=== PATIENT | female | born 1970 | race Caucasian/White ===

== ENCOUNTER 2020-11-28 09:31 | Outpatient (CLI) | payer OTHER ==
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
== END 2020-11-28 09:32 | disposition home or self-care (01) ==
LOC: SC 09:31
PROVIDERS: ATTEND Internal Medicine Pulmonary Disease
DX: G47.10 Hypersomnia, unspecified (principal); R41.89 Other symptoms and signs involving cognitive functions and awareness; G47.8 Other sleep disorders; R06.81 Apnea, not elsewhere classified; R06.83 Snoring; E66.01 Morbid (severe) obesity due to excess calories; Z68.42 Body mass index [BMI] 45.0-49.9, adult
CPT/HCPCS: 99202; 99212

== ENCOUNTER 2020-12-07 15:22 | Outpatient (CLI) | payer OTHER ==
--- NOTE | 2020-12-15 10:15 | Mammography Report ---
BILATERAL DIGITAL SCREENING MAMMOGRAM 3D/2D: 12/07/2020 CLINICAL: Routine screening. No prior exams were available for comparison. There are scattered fibroglandular elements in both br easts. No significant masses, calcifications, or other findings are seen in either breast. IMPRESSION: NEGATIVE There is no mammographic evidence of malignancy. A 1 year screening mammogram is recommended. This exam was interpreted at Station ID: [id number]. NOTE: For mammograms, a report in lay terms will be sent to the patient. Approximately 15% of breast malignancies will not be visualized mammographically. In the management of a palpable breast mass, a negative mammogram must not discourage biopsy of a clinically suspicious lesion. Electronically Signed By: Amada patel/ruby:12/14/2020 09:15:45 ACR BI-RADS Category 1: Negative 3341F PARENCHYMAL PATTERN: (A) - The breast(s) demonstrate(s) scattered fibroglandular densities. BI-RADS CATEGORY: (1) - 1 RECOMMENDATION: (ANNUAL) - Recommend routine annual screening mammography. [id number] 1 year screening LATERALITY: (B)
== END 2020-12-07 15:23 | disposition home or self-care (01) ==
LOC: DI.N 15:22
PROVIDERS: ATTEND Physician Assistant Medical
DX: Z12.31 Encounter for screening mammogram for malignant neoplasm of breast (principal)

== ENCOUNTER 2022-01-30 15:05 | Emergency (ER) | payer OTHER ==
--- NOTE | 2022-01-30 16:29 | ED Physician Documentation ---
PD HPI HEADACHE - Stated complaint Stated Complaint: HIGH BP - Chief complaint Chief Complaint: General - History obtained from History obtained from: Patient - History of Present Illness Timing - onset: How many days ago (several days of feeling of pressure frontal head, some intermittent blurred vision, and feeling of nausea.) Timing - onset during: Light activity Timing - duration: Days (few days of feeling head pressure. Took BP at home and noted it elevated 160-180 systolic and 100 diastolic the past few days, and higher today over 200 systolic. This made her very concerned.) Timing - details: Gradual onset, Waxing and waning Worst headache ever?: No: Worst headache ever? Location: Front, Global Quality: Tightness Associated symptoms: Nausea, Vision changes (blurred at times). No: Fever, Stiff neck Improved by: Rest Worsened by: No: Light, Noise Contributing factors: Hypertension (used to be on several BP meds but has tapered to just hydralazine on her own. DOes not regularly check BP. LAst time taken was several months ago in PMD office and was told it was elevated there.). No: Recent illness Similar symptoms before: Diagnosis (has had similar symptoms with elevated BP in the past.) Recently seen: Not recently seen Review of Systems Constitutional: denies: Fever, Chills Nose: denies: Rhinorrhea / runny nose, Congestion Throat: denies: Sore throat Cardiac: denies: Chest pain / pressure, Palpitations, Pedal edema, Calf pain Respiratory: denies: Dyspnea, Cough GI: denies: Abdominal Pain, Nausea, Vomiting, Diarrhea, Hematemesis, Bloody / black stool Neurologic: reports: Headache (pressure feeling). denies: Near syncope, Confused, Altered mental status, Head injury Psychiatric: denies: Depressed, Anxiety PD PAST MEDICAL HISTORY - Past Medical History Cardiovascular: Hypertension Respiratory: None Neuro: None Endocrine/Autoimmune: None - Present Medications Home Medications: Ambulatory Orders Medication Instructions Recorded Confirmed Hydralazine HCl 50 mg PO BID 01/30/22 01/30/22 Losartan Potassium [Cozaar] 100 mg PO DAILY 30 Days #30 tablet 01/30/22 PARoxetine HCl [Paxil] 30 mg PO BID 01/30/22 01/30/22 Pantoprazole [Protonix] 40 mg PO DAILY 01/30/22 01/30/22 Zolpidem Tartrate [Ambien] 10 mg PO HS PRN 01/30/22 01/30/22 hydrOXYzine HCL [Hydroxyzine HCl] 25 mg PO BID PRN 01/30/22 01/30/22 hydroCHLOROthiazide [Hydrodiuril] 25 mg PO DAILY 30 Days #30 tablet 01/30/22 metFORMIN [Glucophage] 500 mg PO DAILY 01/30/22 01/30/22 - Allergies Allergies/Adverse Reactions: Allergies Allergy/AdvReac Type Severity Reaction Status Date / Time escitalopram [From Lexapro] Allergy Edema Verified 01/30/22 15:11 - Living Situation Living Situation: reports: With spouse/s.o. Living Arrangement: reports: At home - Social History Does the pt smoke?: No Does the pt have substance abuse?: No - Family History Family history: reports: CAD PD ED PE NORMAL - Vitals Vital signs reviewed: Yes - General General: Alert and oriented X 3, No acute distress, Well developed/nourished - Neck Neck: Supple, no meningeal sign, No adenopathy - Cardiac Cardiac: RRR, No murmur - Respiratory Respiratory: No respiratory distress, Clear bilaterally - Abdomen Abdomen: Normal bowel sounds, Soft, Non distended - Derm Derm: Normal color, Warm and dry - Extremities Extremities: No tenderness to palpate, Normal ROM s pain, No edema, No calf tenderness / cord - Neuro Neuro: Alert and oriented X 3, No motor deficit, Normal speech Results - Vitals Vitals: Oxygen O2 Source Room air - Labs Labs: Laboratory Tests 01/30/22 01/30/22 01/30/22 16:36 16:36 16:36 WBC 5.1 RBC 4.89 Hgb 13.6 Hct 41.9 MCV 85.7 MCH 27.8 MCHC 32.5 RDW 14.2 Plt Count 233 MPV 9.9 Neut # (Auto) 2.9 Lymph # (Auto) 1.3 L Parke # (Auto) 0.8 Eos # (Auto) 0.1 Baso # (Auto) 0.0 Absolute Nucleated RBC 0.00 Nucleated RBC % 0.0 Sodium 138 Potassium 3.9 Chloride 98 L Carbon Dioxide 28 Anion Gap 12.0 BUN 13 Creatinine 0.8 Estimated GFR (MDRD) 75 L Glucose 118 H Calcium 9.7 Magnesium 2.2 PD MEDICAL DECISION MAKING - ED course Complexity details: reviewed results, re-evaluated patient (BP is mildly decreased, which is intended target, as did not want it down too abruptly. HEr headache feeling is gone.), considered differential (BP elevated and she is having some pressure headache and blurred vision intermittently. DOEs not seem ill, such as URI. CAn treat the BP some, since having mild symptoms. And can check for other organ dysfunction such as kidney function, liver function, and also lytes. ), d/w patient Departure - Departure Disposition: 01 Home, Self Care Clinical Impression: Hypertension Qualifiers: Hypertension type: unspecified Qualified Code(s): I10 - Essential (primary) hypertension Headache Qualifiers: Headache type: unspecified Headache chronicity pattern: acute headache Intractability: not intractable Qualified Code(s): R51.9 - Headache, unspecified Condition: Stable Record reviewed to determine appropriate education?: Yes Instructions: ED Cephalgia Unspecified, ED Hypertension Conf Out Of Control Follow-Up: DELFINO REGAN PA-C [Primary Care Provider] - Prescriptions: Losartan Potassium [Cozaar] 100 mg PO DAILY 30 Days #30 tablet hydroCHLOROthiazide [Hydrodiuril] 25 mg PO DAILY 30 Days #30 tablet Comments: Your blood pressure is still on the higher side but your symptoms are better so that is actually our goal at the moment and not to bring it too low too quickly. Continue usual medications. Add hydrochlorothiazide 25 mg daily and losartan 100 mg daily. See how your blood pressure is and check it daily over the next week or so. Follow-up with your primary care in about a week to see if the medicines need further adjusting. Call for an appointment. I transmitted your prescriptions to [facility] pharmacy in [place]. Discharge Date/Time: 01/30/22 18:39
[2022-01-30 16:42] LABS: BASOPHILS % (AUTO) 0.8 %; EOSINOPHILS # (AUTO) 0.1 10^3/uL (0.0-0.7); EOSINOPHILS % (AUTO) 1.8 %; HCT - HEMATOCRIT 41.9 % (37.0-47.0); HGB - HEMOGLOBIN 13.6 g/dL (12.0-16.0); LYMPHOCYTES # (AUTO) 1.3 10^3/uL (1.5-3.5); LYMPHOCYTES % (AUTO) 24.5 %; MEAN CORPUSCULAR HEMOGLOBIN 27.8 pg (27.0-31.0); MEAN CORPUSCULAR HGB CONC 32.5 g/dL (32.0-36.0); MEAN CORPUSCULAR VOLUME 85.7 fL (81.0-99.0); MEAN PLATELET VOLUME 9.9 fL (7.9-10.8); MONOCYTES # (AUTO) 0.8 10^3/uL (0.0-1.0); MONOCYTES % (AUTO) 15.8 %; NEUTROPHILS # (AUTO) 2.9 10^3/uL (1.5-6.6); NEUTROPHILS % (AUTO) 56.7 %; PLT - PLATELET COUNT 233 10^3/uL (130-450); RED BLOOD COUNT 4.89 10^6/uL (4.20-5.40); RED CELL DISTRIBUTION WIDTH 14.2 % (12.0-15.0); WHITE BLOOD COUNT 5.1 x10^3/uL (4.8-10.8)
[2022-01-30 16:48] LABS: CALCIUM 9.7 mg/dL (8.5-10.3); CREATININE 0.8 mg/dL (0.4-1.0); POTASSIUM 3.9 mmol/L (3.5-5.0)
[2022-01-30] MEDS ORDERED: FUROSEMIDE 20 MG/2 ML VIAL IVP STA (16:48)
[2022-01-30] MEDS ORDERED: ENALAPRILAT 1.25 MG/ML VIAL IVP STA (16:48)
[2022-01-30 18:17] VITALS: BP 177/114
== END 2022-01-30 18:39 | disposition home or self-care (01) ==
LOC: ED 15:05
DX: R51.9 Headache, unspecified (principal); I10 Essential (primary) hypertension
CPT/HCPCS: 36415; 80048; 83735; 85025; 96374; 99284

== ENCOUNTER 2022-03-06 15:59 | Outpatient (CLI) | payer OTHER ==
[2022-03-06 16:46] VITALS: BP 132/74
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
== END 2022-03-06 16:00 | disposition home or self-care (01) ==
LOC: SC 15:59
PROVIDERS: ATTEND Nurse Practitioner Family
DX: G47.10 Hypersomnia, unspecified (principal); R06.81 Apnea, not elsewhere classified; G47.8 Other sleep disorders; R06.83 Snoring; R41.89 Other symptoms and signs involving cognitive functions and awareness; E66.01 Morbid (severe) obesity due to excess calories; Z68.43 Body mass index [BMI] 50.0-59.9, adult
CPT/HCPCS: 99212; 99213

== ENCOUNTER 2022-04-26 14:24 | Outpatient (CLI) | payer OTHER ==
--- NOTE | 2022-04-26 15:13 | SLEEP CARE CONSULTATION ---
Information from patient questionnaire entered by Anastasiya Hitchcock MA. I have reviewed and concur with the information entered by Anastasiya Hitchcock MA. This document represents the service I personally performed and the decisions made by , Judy Madrigal ARNP. History of Present Illness Service Date and Time: 04/26/2022 1424 Initial [place] Sleepiness Scale score: 16 (in 2021) Current [place] Sleepiness Scale score: 20 (04/26/2022) Additional HPI information: MYRTLE OLSON returns for follow up and results of the recently performed polysomnography. I explained the pathophysiology behind obstructive sleep apnea. We then spent quite a bit of time discussing different treatment options. For mild obstructive sleep apnea, surgery and oral appliance are alternatives to nasal CPAP therapy but in moderate or severe cases, nasal CPAP is the most effective and reliable treatment. Because apnea is primarily in supine position, then positional management therapy could be effective. Methods discussed such as positioning with pillows to prevent supine sleep. I reviewed the impact of weight changes on sleep apnea and strongly recommended losing weight. After some discussion, the patient opted to go with the nasal CPAP therapy. Nasal autoCPAP set at 4-15 cmH20 will be ordered with rationale explained. A manual titration study will be ordered if unable to find optimal pressure with office adjustments. I explained how CPAP machine works and what to expect when using the machine. Using CPAP every night in order to get used to it was emphasized. Patient advised to put CPAP mask on before getting into bed so as not to fall asleep without CPAP. To assist acclimation to CPAP use, it could also be used for a short time during day while reading or watching TV. The patient was instructed to call the CPAP supplier to discuss any mechanical problem that may occur. If the mask given is uncomfortable or is difficult to keep on through the night even with adjustment, contact the CPAP supplier as many will replace with ano er mask style if notified before 30 days. If snoring or perceives is not getting enough air or too much air from the machine, notify this office. Patient counseled not drink alcohol less than 4 hours before bedtime as it can increase snoring and apnea. Patient was cautioned about risks of drowsy driving until sleepiness symptoms resolve. Sleep Study - Results Type of Sleep Study: Polysomnography (F/U POLY, 04/06/22 [facility], POS,) Prior sleep studies: No Polysomnography/Home Sleep Study results: IMPRESSION: The quality of the study is good. The patient had reduced sleep efficiency due to frequent awakenings after the sleep onset. The sleep architecture was abnormal for sleep fragmentation and lack of REM sleep. Respiratory monitoring showed moderate obstructive sleep apnea-hypopnea (AHI = 24.3) associated with frequent arousals, oxyhemoglobin desaturation and mild hypoxia (chayito oxygen saturation of 80%). The patient did not sleep supine during this study. Snore was light to moderate in intensity. There was severe periodic leg movement of sleep contributing to the sleep fragmentation. Cardiac rhythm was normal sinus rhythm without significant arrhythmia. No abnormal behavior (parasomnia) observed during the night. Allergies and Home Medications Known drug allergies: Yes (LEXAPRO) Drug allergies reviewed: Yes Home medication list reviewed: Yes (no changes) Allergy and home medication list: Allergies escitalopram [From Lexapro] Allergy (Verified 01/30/22 15:11) Edema Review of Systems Review of systems same as previous: Yes (no changes) Physical Exam Vital signs obtained and entered by: María HITCHCOCK CMA JACI Blood Pressure: 124/79 (RESP 18, PULSE 80, LEFT,) Cuff size: wrist Heart Rate: 82 O2 Saturation: 96 Height: 5 ft 2 in Weight: 272 lb (CLOTHES) Weight change since last visit: "IT IS WHAT IT IS" Body Mass Index: 49.7 BMI Classification: Morbidly Obese Impression and Plan 1. Obstructive Sleep Apnea-Hypopnea Syndrome, moderate, with lowest oxygen saturation of 80%. Obviously this is the cause of the patients symptoms of unrefreshed sleep, and excessive daytime sleepiness. Positive pressure therapy could benefit hypertension, anxiety and depression. As mentioned above, the patient will be started on nasal autoCPAP therapy with pressure set at 4-15 cmH2 O. Compliance guidelines also reviewed. A copy of compliance guidelines will be given for reference at check out. 2. Periodic limb movement, severe, that did fragment patients sleep. Periodic limb movement of sleep (PLMS) is characterized by episodes of repetitive limb movements that occur during sleep and usually involve the lower limbs. The etiology is unknown but can be associated with restless leg syndrome (RLS), a low serum ferritin level, neuropathy, spinal cord diseases, kidney disease, rheumatological disorders, narcolepsy, obstructive sleep apnea, and REM sleep behavior disorder. Sleep hygiene methods can also improve sleep as well as lifestyle changes such as regular exercise. Patient was advised that no treatment is needed at this time. If symptoms increase, then further evaluation is indicated. 3. Hypoxemia, mild, with a chayito oxygen saturation of 80% and 60.8 minutes spent under 89%. Her baseline oxygen saturation was normal with an average oxygen saturation of 91%. * Nasal auto CPAP therapy, pressure at 4-15 cm H2O. * Attempt to lose weight. * Avoid alcohol consumption near bedtime. * Avoid supine sleep until using CPAP. * The patient is again cautioned about driving until sleepiness completely resolves. * Return one month after CPAP obtained. I will assess response to therapy and compliance at that time. Counseling Topics: Weight loss health impact Visit Type: In Office Time Spent with Patient (minutes): 26 Provider Statement: I spent 100% of the Face to Face Visit with the patient with greater than 50% spent counseling the patient and coordination of care.
[2022-04-26 15:15] VITALS: BP 124/79
== END 2022-04-26 14:25 | disposition home or self-care (01) ==
LOC: SC 14:24
PROVIDERS: ATTEND Nurse Practitioner Family
DX: G47.33 Obstructive sleep apnea (adult) (pediatric) (principal); G47.61 Periodic limb movement disorder; R09.02 Hypoxemia; E66.01 Morbid (severe) obesity due to excess calories; Z68.42 Body mass index [BMI] 45.0-49.9, adult
CPT/HCPCS: 99212; 99213

== ENCOUNTER 2022-06-27 20:44 | Outpatient (CLI) | payer OTHER ==
--- NOTE | 2022-06-28 17:53 | Ultrasound Report ---
PROCEDURE: Ext Limited Non Vascular INDICATIONS: MASS ON BACK OF KNEE TECHNIQUE: Real-time scanning was performed of the posterior left knee, with image documentation. COMPARISON: None. FINDINGS: Examination of left popliteal fossa shows a 6.6 x 2.5 x 4.4 cm cystic structure which does not appear to extend into the left knee joint. No internal vascularity is seen. 5.9 x 1 x 4 cm hypoechoic area is noted within deep soft tissue along anterolateral aspect of patella and patella tendon and appears to be communicating with left knee joint. IMPRESSION: 1. Suggestion of a 6.6 x 2.5 x 4.4 cm popliteal cyst in left knee. 2. Elongated fluid collection along anterolateral left knee deep soft tissue and possibly communicati ng with left knee joint space and likely represent joint effusion. Reviewed by: Parveen Suazo MD on 06/28/2022 5:51 PM PDT Approved by: Parveen Suazo MD on 06/28/2022 5:51 PM PDT Station ID: [id number]
== END 2022-06-27 20:45 | disposition home or self-care (01) ==
LOC: DI 20:44
PROVIDERS: ATTEND Student in an Organized Health Care Education/Training Program
DX: R22.42 Localized swelling, mass and lump, left lower limb (principal)

== ENCOUNTER 2022-07-05 15:54 | Outpatient (CLI) | payer OTHER ==
--- NOTE | 2022-07-05 17:34 | XRAY Report ---
PROCEDURE: Knee 2 View LT INDICATIONS: LEFT KNEE PAIN TECHNIQUE: 2 views of the left knee(s) were acquired. COMPARISON: None. FINDINGS: Bones: No fractures or dislocations. No suspicious bony lesions. Ewyw-hw-sivdwocr tricompartmental knee joint degeneration. Soft tissues: No joint effusion. No suspicious soft tissue calcifications. IMPRESSION: Yekm-[id number]-[id number] degenerative joint disease. Reviewed by: Federica Costello MD on 07/05/2022 5:32 PM PDT Approved by: Federica Costello MD on 07/05/2022 5:32 PM PDT Station ID: [id number]
== END 2022-07-05 23:59 | disposition home or self-care (01) ==
LOC: DI.N 15:54
PROVIDERS: ATTEND Family Medicine
DX: M17.12 Unilateral primary osteoarthritis, left knee (principal)

== ENCOUNTER 2023-01-20 10:12 | Outpatient (CLI) | payer OTHER | END 2023-01-20 23:59 | disposition EMS.NT | LOC: EMS 10:12 | DX: M25.561 Pain in right knee (principal); W01.0XXA Fall on same level from slipping, tripping and stumbling without subsequent striking against object, initial encounter; Y93.E9 Activity, other interior property and clothing maintenance; Y92.090 Kitchen in other non-institutional residence as the place of occurrence of the external cause; Y99.0 Civilian activity done for income or pay ==

== ENCOUNTER 2023-05-20 07:51 | Outpatient (CLI) | payer MEDICAID ==
[2023-05-20 12:13] LABS: BASOPHILS # (AUTO) 0.1 10^3/uL (0.0-0.1); BASOPHILS % (AUTO) 0.8 %; EOSINOPHILS # (AUTO) 0.3 10^3/uL (0.0-0.7); EOSINOPHILS % (AUTO) 3.6 %; HCT - HEMATOCRIT 39.2 % (37.0-47.0); HGB - HEMOGLOBIN 13.5 g/dL (12.0-16.0); LYMPHOCYTES # (AUTO) 2.7 10^3/uL (1.5-3.5); LYMPHOCYTES % (AUTO) 33.3 %; MEAN CORPUSCULAR HGB CONC 34.4 g/dL (32.0-36.0); MEAN CORPUSCULAR VOLUME 90.1 fL (81.0-99.0); MEAN PLATELET VOLUME 10.7 fL (7.9-10.8); MONOCYTES # (AUTO) 0.6 10^3/uL (0.0-1.0); MONOCYTES % (AUTO) 7.9 %; NEUTROPHILS # (AUTO) 4.3 10^3/uL (1.5-6.6); NEUTROPHILS % (AUTO) 54.1 %; PLT - PLATELET COUNT 270 10^3/uL (130-450); RED BLOOD COUNT 4.35 10^6/uL (4.20-5.40)
[2023-05-20 12:32] LABS: ALBUMIN 4.2 g/dL (3.2-5.5); ALBUMIN/GLOBULIN RATIO 1.4 (1.0-2.2); ALKALINE PHOSPHATASE 67 IU/L (42-121); ALT ALANINE AMINOTRANSFERASE 11 IU/L (10-60); AST ASPARTATE AMINOTRANSFERASE 11 IU/L (10-42); BILIRUBIN,TOTAL 0.6 mg/dL (0.2-1.0); BUN - BLOOD UREA NITROGEN 17 mg/dL (6-20); CALCIUM 9.7 mg/dL (8.5-10.3); CARBON DIOXIDE - CO2 32 mmol/L (21-32); CHLORIDE 101 mmol/L (101-111); CHOL/HDL RATIO 3.4 (<4.4); CHOLESTEROL 198 mg/dL; CREATININE 0.7 mg/dL (0.6-1.3); GFR - MDRD 88 (>89); GLUCOSE 138 mg/dL (74-104); HDL CHOLESTEROL 58 mg/dL; LDL CHOLESTEROL,CALCULATED 120 mg/dL; LDL/HDL RATIO 2.1 (<4.4); POTASSIUM 3.6 mmol/L (3.5-4.5); SODIUM 138 mmol/L (135-145); TOTAL PROTEIN 7.3 g/dL (6.4-8.9); TRIGLYCERIDES 98 mg/dL (48-352); VLDL CHOLESTEROL 20 mg/dL
[2023-05-20 12:54] LABS: THYROID STIMULATING HORMONE 1.29 uIU/mL (0.34-5.60)
[2023-05-20 14:15] LABS: ESTIMATED AVERAGE GLUCOSE 134 mg/dL (70-100); HEMOGLOBIN A1c% 6.3 % (4.27-6.07)
== END 2023-05-20 07:52 | disposition home or self-care (01) ==
LOC: LAB.N 07:51
PROVIDERS: ATTEND Nurse Practitioner Family
DX: I10 Essential (primary) hypertension (principal); E11.9 Type 2 diabetes mellitus without complications; E66.01 Morbid (severe) obesity due to excess calories; Z68.42 Body mass index [BMI] 45.0-49.9, adult
CPT/HCPCS: 36415; 80053; 80061; 83036; 83721; 84443; 85025

== ENCOUNTER 2023-06-18 08:00 | Outpatient (CLI) | payer MEDICAID ==
--- NOTE | 2023-06-18 17:50 | XRAY Report ---
PROCEDURE: Knee 4 View BILAT INDICATIONS: BILAT KNEE PAIN TECHNIQUE: 4 views of the bilateral knee(s) were acquired. COMPARISON: Left knee dated 07/05/2022. FINDINGS: Bones: No fractures or dislocations. No suspicious bony lesions. Bilateral tricompartment osteoph ytes. On the right, there is moderate to severe medial compartment joint space loss. On the left, the re is moderate medial compartment joint space loss. Soft tissues: Trace bilateral knee joint effusion. No suspicious soft tissue calcifications or kasey s. IMPRESSION: Bilateral knee degenerative arthritis, right greater than left. Reviewed by: Bry Diaz MD on 06/18/2023 5:49 PM PDT Approved by: Bry Diaz MD on 06/18/2023 5:49 PM PDT Station ID: [id number]
== END 2023-06-18 23:59 | disposition home or self-care (01) ==
LOC: DI.WOS 08:00
PROVIDERS: ATTEND Physician Assistant Surgical
DX: M17.0 Bilateral primary osteoarthritis of knee (principal)

== ENCOUNTER 2023-09-18 09:20 | Outpatient (CLI) | payer MEDICAID ==
--- NOTE | 2023-09-18 10:01 | Sleep Patient Instructions ---
Sleep Center Visit Summary - Patient Visit Information Reason for Visit: Annual Visit for PAP therapy - Patient Instructions Additional Instructions: You will continue with CPAP therapy with pressure set at 6-9 cmH2O. A supply prescription will be updated with your DME. I have added a mask refitting to your prescription. We encourage you to continue to try to lose weight. Please follow up with the sleep care office in 1 year. - Clinic Information Contact: [facility] [address] [place] [address] [email or web address] T: [phone]
--- NOTE | 2023-09-18 10:06 | SLEEP CARE CONSULTATION ---
Information from patient questionnaire entered by Angelique Lee. I have reviewed and concur with the information entered by Angelique Lee. This document represents the service I personally performed and the decisions made by me, Judy Madrigal ARNP. History of Present Illness Service Date and Time: 09/18/2023 0920 Previous diagnosis: Moderate, Obstructive Sleep Apnea-Hypopnea Syndrome AHI: 24.3 (in 2021) Reason for follow up: annual (LAST SEEN 05/2022) Equipment type: CPAP (KRISTINE II NEED MACHINE) Equipment obtained from: [employer] (has not had insurance to get supplies) Mask style: Nasal Mask brand: Resmed (AirFit [id number]) Backup mask available: No Last cushion change: over a year Prior sleep studies: No Type of Sleep Study: Polysomnography (F/U POLY, 04/06/22 [facility], POS,) HPI additional information: MYRTLE OLSON was diagnosed to have moderate, AHI 24.3, obstructive sleep apnea- hypopnea syndrome and returned today for CPAP therapy annual follow-up. Sleep Study - Results Type of Sleep Study: Polysomnography (F/U POLY, 04/06/22 [facility], POS,) Prior sleep studies: No CPAP Compliance Data - Data Reviewed with Patient Average duration of nightly device use: 6 hours Compliance rate %: 100 (Kristine says compliant) Current pressure setting (cmH2O): 6-9 Average residual AHI: 2.4 Subjective Patient concerns: reports: air blowing in eyes, other (nose sores, prone to cold sores). denies: aerophagia, mask discomfort, mask leak noise, condensation in mask/hose, nasal congestion, dry mouth, nose, throat, epistaxis Observed to snore while using device: No Current pressure setting perceived as: comfortable On therapy, patient: reports: sleeping better, awakening more refreshed, being more awake and alert during the day, more rested overall. denies: drowsiness while driving Initial [place] Sleepiness Scale score: 16 (in 2021) Current [place] Sleepiness Scale score: 4 (09/18/23) Allergies and Home Medications Known drug allergies: Yes (as listed) Drug allergies reviewed: Yes Home medication list reviewed: Yes (Gabapentin 300 mg, prn 4/day; Naproxen 500 mg prn) Allergy and home medication list: Allergies escitalopram [From Lexapro] Allergy (Verified 09/17/23 12:45) Edema Review of Systems Review of systems same as previous: No (Neuropathy in feet; carpal tunnel in both hands) Physical Exam Vital signs obtained and entered by: ANGELIQUE Bradshaw MA Blood Pressure: 126/78 (LEFT ARM) Cuff size: long Heart Rate: 61 O2 Saturation: 96 Height: 5 ft 2 in Weight: 248 lb 9.6 oz Weight change since last visit: 31 pounds loss Body Mass Index: 45.4 BMI Classification: Morbidly Obese Impression and Plan 1. Obstructive Sleep Apnea-Hypopnea Syndrome, moderate, with good treatment compliance and good apnea control. On CPAP therapy, the patient has better sleep quality and is more rested overall. Patient has significant improvement of their sleep apnea and is satisfied with current CPAP therapy. Patient denies problems with oral dryness, nasal congestion, epistaxis, skin irritation or aerophagia. She has been getting more air leaks into her eyes but has not changed her mask cushion in over a year. She would like to try a different mask because she is prone to cold sores and she is getting sores in her nose. I will write for a mask refitting for nasal cushion and add to her supply prescription. We will followup with her next year. Patient's apnea severity and rationale for treatment to reduce apnea, improve sleep quality and reduce cardiovascular and cerebrovascular events was reviewed. I also reviewed the benefit of consistent device use of CPAP for hypertension, depression and anxiety. 2. Obesity, unspecified. Currently patients BMI is 45.4. Obesity increases the risk of apnea, CPAP pressure requirements and overall health risks especially cardiovascular and diabetes. Thus patient is advised to continue to try to lose weight. * Continue auto CPAP pressure at 6-9 cmH2O * Mask refitting for nasal cushion mask * Update supply prescription * Notify me if snoring with mask or feeling that the pressure is too much or too little * Attempt to lose weight * Call this office if any problems using CPAP * Return for follow up in 12 months, or sooner if concerns arise Counseling Topics: Spare mask, Weight loss health impact Prescriptions: Device supplies Follow up with Sleep Care in: 1 year Visit Type: In Office Time Spent with Patient (minutes): 32 Provider Statement: I spent 100% of the Face to Face Visit with the patient with greater than 50% spent counseling the patient and coordination of care.
[2023-09-18 10:14] VITALS: BP 126/78; O2SAT 96
== END 2023-09-18 09:21 | disposition home or self-care (01) ==
LOC: SC 09:20
PROVIDERS: ATTEND Nurse Practitioner Family
DX: G47.33 Obstructive sleep apnea (adult) (pediatric) (principal); E66.01 Morbid (severe) obesity due to excess calories; Z68.42 Body mass index [BMI] 45.0-49.9, adult
CPT/HCPCS: 99212; 99214

== ENCOUNTER 2023-10-03 11:24 | Day surgery (SDC) | payer MEDICAID ==
[~2023-10-03 11:24] MED LIST: ACETAMINOPHEN 500 MG TABLET PO ONE; CELECOXIB 100 MG CAPSULE PO ONE; GABAPENTIN 400 MG CAPSULE ONE; ceFAZolin 2 GM VIAL ONE
[2023-10-03] MEDS ORDERED: LACTATED RINGERS 1,000 ML IV ONE ×2 (11:49→13:27)
--- NOTE | 2023-10-03 11:52 | ANESTHESIA ---
Pre-Anesthesia VS, & Labs - Diagnosis right carpal tunnel syndrome - Procedure right carpal tunnel release Height: 5 ft 2 in - NPO >8 hours - Is Patient ?: No Home Medications and Allergies Home Medications: Ambulatory Orders Acetaminophen [Acetaminophen Extra Strength] 500 mg PO Q6H PRN 09/30/23 Clindamycin Phosphate [Cleocin T] 1 applic TP BID PRN 09/30/23 Hydralazine HCl 50 mg PO BID 09/30/23 hydroCHLOROthiazide [Hydrodiuril] 50 mg PO DAILY 09/30/23 PARoxetine HCL [Paxil] 30 mg PO BID 01/30/22 Gabapentin [Neurontin] 300 mg PO TID 09/18/23 Acetaminophen [Acetaminophen Extra Strength] 500 mg PO Q6H PRN 09/30/23 Clindamycin Phosphate [Cleocin T] 1 applic TP BID PRN 09/30/23 Hydralazine HCl 50 mg PO BID 09/30/23 hydroCHLOROthiazide [Hydrodiuril] 50 mg PO DAILY 09/30/23 Allergies/Adverse Reactions: Allergies Allergy/AdvReac Type Severity Reaction Status Date / Time escitalopram [From Lexapro] Allergy Edema Verified 10/03/23 12:03 Anes History & Medical History - Anesthetic History Anesthesia Complications: reports: No previous complications - Medical History Cardiovascular: reports: Hypertension Pulmonary: reports: Sleep apnea, CPAP use Gastrointestinal: reports: GERD Urinary: reports: Kidney stones Neuro: reports: None Musculoskeletal: reports: Osteoarthritis Endocrine/Autoimmune: reports: None Skin: reports: Other Psychosocial: reports: Cannabis (daily) - Surgical History Gynecologic: reports: section, Hysterectomy Exam General: Alert, Oriented x3 Dental: WNL Mouth Openin Fingerbreadth Mallampati classification: III Thyromental Distance: 4-6 cm Respiratory: Lungs clear Cardiovascular: Regular rate Plan Anesthesia Type: MAC, Total IV Consent for Procedure(s) Verified and Reviewed: Yes Code Status: Attempt Resuscitation ASA classification: 3-Severe systemic disease (secondary to high BMI/CHAPARRITA) Is this case an emergency?: No
[2023-10-03] MEDS ORDERED: LIDOCAINE 1%-EPI 1:100000 20 ML MDV ONE (11:53)
[2023-10-03] MEDS ORDERED: MIDAZOLAM 2 MG/2 ML VIAL ONE (12:32)
[2023-10-03] MEDS ORDERED: fentaNYL 100 MCG/2 ML VIAL ONE (12:32)
[2023-10-03] MEDS ORDERED: PROPOFOL 200 MG/20 ML VIAL IVP ONE (12:33)
[2023-10-03] MEDS ORDERED: LIDOCAINE-PF 2% 10 ML AMP SUBQ ONE (12:48)
[2023-10-03] MEDS ORDERED: LIDOCAINE 1%-EPI 1:100000 20 ML MDV SUBQ ONE ×2 (13:00)
[2023-10-03] MEDS ORDERED: ACETAMINOPHEN 500 MG TABLET PO PRN (13:24)
[2023-10-03] MEDS ORDERED: oxyCODONE 5 MG TABLET PO PRN (13:24)
[2023-10-03] MEDS ORDERED: ONDANSETRON 4 MG/2 ML VIAL IVP PRN (13:24)
--- NOTE | 2023-10-03 13:27 | OPERATIVE REPORT ---
Operative Report - General Procedure Date: 10/03/23 Planned Procedure: Right carpal tunnel release Pre-Op Diagnosis: Right carpal tunnel syndrome, diabetic neuropathy Procedure Performed: Right carpal tunnel release Post Op Diagnosis: Same as preoperative diagnosis - Procedure Note Primary Surgeon: Iván Hayden MD Secondary Surgeon: Erika LOBO Anesthesia Provider: Aby Cheek CRNA Anesthesia Technique: MAC Estimated Blood Loss (mL): 3 Indications: This Is a 53-year-old woman with numbness in the median nerve distribution of her right hand. She has been dropping small objects because of the decreased sensation. She had a steroid injection and apparently did not help prior to surgery. Her EMG was abnormal and suggestive of carpal tunnel syndrome. However she also has a history of diabetic neuropathy. She did have a positive Tinel and Phalen and some decrease in 2-point discrimination to the right hand. Her wrist exam was otherwise normal. Findings: There was a nonspecific tenosynovitis within the carpal tunnel, otherwise findings were normal. The median nerve did show slight atrophy Complications: . None - Other Other Information/Narrative: The patient was brought to the operating room and placed in a supine position. The right arm was placed on a arm extension table. The right upper extremity was prepped and draped in a sterile manner in the usual fashion. A timeout procedure was performed by the entire operating room team and all were in agreement. 8 cc of 1% lidocaine with epinephrine was injected about the right carpal tunnel using a volar approach just proximal to the wrist flexor crease, ulnar to the palmaris longus. An additional amount was injected subcutaneously. A longitudinal incision was made in line with the third webspace. The incision began just distal to the wrist flexor crease and extended for 2.5 cm. The subcutaneous tissue and palmar aponeurosis were divided in line with the inci shell. The transverse carpal ligament was identified proximally and was incised. A blunt obturator was inserted beneath the transverse carpal ligament. The transverse carpal ligament was then divided from proximal to distal under direct visualization. The transverse carpal ligament was divided proximally with blunt tip scissors to achieve a full release of the carpal tunnel. The median nerve w as inspected. The wound was irrigated. The skin was closed with interrupted 4- 0 nylon vertical mattress suture. A bulky hand dressing was applied to the left hand and wrist with mild compression. A pneumatic tourniquet was not utilized during the procedure. Hemostasis was achieved with electrocautery. The patient tolerated procedure well A physician imaging assistant was medically necessary to help with prepping and draping, positioning, protection of vital structures, assistance during the procedure including wound closure, dressing and/or splinting.
[2023-10-03 13:58] VITALS: BP 129/79; O2SAT 96
--- NOTE | 2023-10-03 15:29 | ANESTHESIA POST OP EVALUATION ---
Anesthesia Post Eval - Post Anesthesia Eval Vitals: Last Vital Signs Temp 36.1 C L 10/03/23 13:27 Pulse 62 10/03/23 13:56 Resp 17 10/03/23 13:56 BP 129/79 10/03/23 13:56 Pulse Ox 96 10/03/23 13:56 O2 Flow Rate 0 10/03/23 11:50 CV Function Including HR & BP: Stable Pain Control: Satisfactory Nausea & Vomiting: Negative Mental Status: Baseline Respiratory Status: Airway Patent Hydration Status: Satisfactory Anesthesia Complications: None
== END 2023-10-03 11:25 | disposition home or self-care (01) ==
LOC: SDS 11:24
PROVIDERS: ATTEND Orthopaedic Surgery
DX: G56.01 Carpal tunnel syndrome, right upper limb (principal); E11.42 Type 2 diabetes mellitus with diabetic polyneuropathy; G47.30 Sleep apnea, unspecified
CPT/HCPCS: 64721; A9270; J7120

== ENCOUNTER 2023-10-17 08:00 | Outpatient (CLI) | payer MEDICAID ==
--- NOTE | 2023-10-17 17:27 | XRAY Report ---
PROCEDURE: Hand 3 View RT INDICATIONS: RIGHT HAND PAIN/INJURY TECHNIQUE: 3 views of the hand(s) acquired. COMPARISON: None right hand radiograph on May 30, 2023. FINDINGS: Bones: Subtle irregularity of the mid scaphoid, only seen on lateral view. This was not well seen on the prior due to differences in obliquity. Normal alignment. Joint spaces are maintained. No suspici ous bony lesions. Soft tissues: No suspicious soft tissue calcifications or masses. IMPRESSION: Subtle irregularity of the mid scaphoid, only seen on lateral view. Findings may represent a subtle n ondisplaced fracture versus normal anatomy. Consider repeat imaging in 7-10 days. Reviewed by: Kandy Werner MD on 10/17/2023 5:25 PM PST Approved by: Kandy Werner MD on 10/17/2023 5:25 PM PST Station ID: [id number]
== END 2023-10-17 23:59 | disposition home or self-care (01) ==
LOC: DI.WOS 08:00
PROVIDERS: ATTEND Physician Assistant Surgical
DX: M79.641 Pain in right hand (principal); R93.6 Abnormal findings on diagnostic imaging of limbs

== ENCOUNTER 2024-01-07 08:00 | Outpatient (CLI) | payer MEDICAID ==
--- NOTE | 2024-01-07 13:01 | XRAY Report ---
PROCEDURE: Knee 4 View BILAT INDICATIONS: Chronic knee pain bilaterally. TECHNIQUE: 4 views of each knee(s) were acquired. COMPARISON: None. FINDINGS: Right: No fractures or dislocations. No suspicious bony lesions. Tricompartmental osteophytosis. Mo derate to severe joint space narrowing with weightbearing. Mild lateral subluxation of patella. Small knee joint effusion. No suspicious soft tissue calcifications or masses. Left: No fractures or dislocations. No suspicious bony lesions. Tricompartmental osteophytosis. Mod erate to severe joint space narrowing with weightbearing. Mild lateral subluxation of patella. Small knee joint effusion. No suspicious soft tissue calcifications or masses. IMPRESSION: 1. Moderate degenerative joint disease bilaterally. 2. Small knee joint effusions bilaterally. Reviewed by: Federica Costello MD on 01/07/2024 1:00 PM PDT Approved by: Federica Costello MD on 01/07/2024 1:00 PM PDT Station ID: [id number]
== END 2024-01-07 23:59 | disposition home or self-care (01) ==
LOC: DI.WOS 08:00
PROVIDERS: ATTEND Physician Assistant Surgical
DX: M17.0 Bilateral primary osteoarthritis of knee (principal); M25.462 Effusion, left knee; M25.461 Effusion, right knee; M76.52 Patellar tendinitis, left knee; M76.51 Patellar tendinitis, right knee

== ENCOUNTER 2024-01-31 14:12 | Outpatient (CLI) | payer MEDICAID ==
--- NOTE | 2024-01-31 15:12 | Sleep Patient Instructions ---
Sleep Center Visit Summary - Patient Visit Information Reason for Visit: 5-month follow-up - Patient Instructions Additional Instructions: You were here for follow up of CPAP therapy. You will be continued on CPAP therapy with pressure at 6-9 cmH2O. Please let us know if the pressure change is uncomfortable and we can make further adjustments of the pressure. A supply prescription will be updated with a transfer of care to a new CPAP supplier. I have added an order to replace your non-functioning PAP machine. Please call the office to schedule a compliance follow up once you get your new device. You should follow up with sleep care in one month after obtaining new device. You may contact us sooner for any questions or concerns. - Clinic Information Contact: [facility] [address] [place] [address] [email or web address] T: [phone]
--- NOTE | 2024-01-31 15:19 | SLEEP CARE CONSULTATION ---
Information from patient questionnaire entered by Angelique Lee. I have reviewed and concur with the information entered by Angelique Lee. This document represents the service I personally performed and the decisions made by , Judy Madrigal ARNP. History of Present Illness Service Date and Time: 01/31/2024 1412 Previous diagnosis: Moderate, Obstructive Sleep Apnea-Hypopnea Syndrome AHI: 24.3 (in 2021) Reason for follow up: other (5 MONTH F/U ) Equipment type: CPAP (BON II, s/u 05/11/2022, NEED MACHINE) Equipment obtained from: [facility] (has not got any supplies) Mask style: Nasal Backup mask available: No Last cushion change: for long time Prior sleep studies: No Type of Sleep Study: Polysomnography (F/U POLY, 04/06/22 [facility], POS,) HPI additional information: MYRTLE OLSON was diagnosed to have moderate, AHI 24.3, obstructive sleep apnea- hypopnea syndrome and returned today for CPAP therapy five month follow-up. Sleep Study - Results Type of Sleep Study: Polysomnography (F/U POLY, 04/06/22 [facility], POS,) Prior sleep studies: No CPAP Compliance Data - Data Reviewed with Patient Average duration of nightly device use: 7 hours 20 minutes Compliance rate %: 62.2 (124/180 days used) Current pressure setting (cmH2O): 4-15 (avg 7.3, P95 8.8) Average residual AHI: 2.2 Obstructive apnea: 0.1 Average large leak: 0 Compliance data discussion: Machine stopped working about a week ago after a power outage. It will not turn on. Subjective Patient concerns: reports: mask leak noise (needs to change cushion). denies: aerophagia, mask discomfort, air blowing in eyes, condensation in mask/hose, nasal congestion, dry mouth, nose, throat, epistaxis Observed to snore while using device: No Current pressure setting perceived as: comfortable On therapy, patient: reports: sleeping better, awakening more refreshed, being more awake and alert during the day, more rested overall, drowsiness while driving (since not able to use machine) Initial [place] Sleepiness Scale score: 16 (in 2021) Current [place] Sleepiness Scale score: 13 (01/31/24) Allergies and Home Medications Known drug allergies: Yes (as listed) Drug allergies reviewed: Yes Home medication list reviewed: Yes (gabapentin) Allergy and home medication list: Allergies escitalopram [From Lexapro] Allergy (Verified 01/30/24 12:48) Edema Review of Systems Review of systems same as previous: No (osteoarthritis) Physical Exam Vital signs obtained and entered by: ANGELIQUE Bradshaw MA Blood Pressure: 137/85 (LEFT ARM) Cuff size: long Heart Rate: 79 O2 Saturation: 98 Height: 5 ft 2 in Weight: 237 lb 12.8 oz Body Mass Index: 43.4 BMI Classification: Morbidly Obese Impression and Plan 1. Obstructive Sleep Apnea-Hypopnea Syndrome, moderate, with fair treatment compliance and good apnea control. On CPAP therapy, the patient has better sleep quality and is more rested overall. She says her CPAP has stopped working. There was a power outage and the next time she went to use her CPAP it would not turn on. She has not gotten any calls from the DME she chose at her last visit and no supplies. She has called multiple times but has not been able to talk to anyone and get supplies. She would like to transfer to a new CPAP supplier. The patients CPAP will not turn on, a sign of malfunction, and is not meeting the patient's needs to treat her sleep apnea. I will add to replace the malfunctioning machine to her new supply order. A DWO prescription will be made. Compliance guidelines for new device and follow up discussed. I will have my surgery scheduling coordinator inform of DME options. Patient advised to contact this office if further supply problems. When I reviewed her therapy report it does not show her pressure changed to 6-9 cm H2O as I requested at her last visit. She still has significant improvement of her sleep apnea but I will put in a second request to have this changed. Patient's apnea severity and rationale for treatment to reduce apnea, improve sleep quality and reduce cardiovascular and cerebrovascular events was reviewed. I also reviewed the benefit of consistent device use of CPAP for hypertension, depression/anxiety. 2. Obesity, unspecified. Currently patients BMI is 43.4. Obesity increases the risk of apnea, CPAP pressure requirements and overall health risks especially cardiovascular and diabetes. Thus patient is advised to lose weight. * Update machine that is not working/malfunctioning * Transfer DME * Change auto CPAP pressure to 6-9 cmH2O; second request * Notify me if snoring with mask or feeling that the pressure is too much or too little * Attempt to lose weight * Call this office if any problems using CPAP * Return for follow up one month after obtaining new device, or sooner if concerns arise Counseling Topics: Spare mask, Weight loss health impact Prescriptions: Auto CPAP, Device supplies, Other (DME transfer) Visit Type: In Office Time Spent with Patient (minutes): 23 Provider Statement: I spent 100% of the Face to Face Visit with the patient with greater than 50% spent counseling the patient and coordination of care.
[2024-01-31 15:26] VITALS: BP 137/85; O2SAT 98
== END 2024-01-31 14:13 | disposition home or self-care (01) ==
LOC: SC 14:12
PROVIDERS: ATTEND Nurse Practitioner Family
DX: G47.33 Obstructive sleep apnea (adult) (pediatric) (principal); E66.01 Morbid (severe) obesity due to excess calories; Z68.41 Body mass index [BMI] 40.0-44.9, adult
CPT/HCPCS: 99212; 99213

== ENCOUNTER 2024-02-18 12:41 | Outpatient (CLI) | payer MEDICAID ==
[2024-02-18 18:05] LABS: BASOPHILS # (AUTO) 0.1 10^3/uL (0.0-0.1); EOSINOPHILS # (AUTO) 0.2 10^3/uL (0.0-0.7); EOSINOPHILS % (AUTO) 3.9 %; HGB - HEMOGLOBIN 12.6 g/dL (12.0-16.0); LYMPHOCYTES # (AUTO) 2.2 10^3/uL (1.5-3.5); LYMPHOCYTES % (AUTO) 37.4 %; MEAN CORPUSCULAR HEMOGLOBIN 29.7 pg (27.0-31.0); MEAN CORPUSCULAR HGB CONC 32.3 g/dL (32.0-36.0); MEAN PLATELET VOLUME 10.7 fL (7.9-10.8); MONOCYTES # (AUTO) 0.5 10^3/uL (0.0-1.0); MONOCYTES % (AUTO) 7.9 %; NEUTROPHILS % (AUTO) 49.6 %; PLT - PLATELET COUNT 240 10^3/uL (130-450); RED BLOOD COUNT 4.24 10^6/uL (4.20-5.40); RED CELL DISTRIBUTION WIDTH 13.8 % (12.0-15.0)
[2024-02-18 18:21] LABS: ALBUMIN 3.8 g/dL (3.2-5.5); ALBUMIN/GLOBULIN RATIO 1.7 (1.0-2.2); ALKALINE PHOSPHATASE 46 IU/L (42-121); ALT ALANINE AMINOTRANSFERASE 12 IU/L (10-60); AST ASPARTATE AMINOTRANSFERASE 13 IU/L (10-42); BILIRUBIN,TOTAL 0.4 mg/dL (0.2-1.0); BUN - BLOOD UREA NITROGEN 22 mg/dL (6-20); CALCIUM 9.3 mg/dL (8.5-10.3); CARBON DIOXIDE - CO2 31 mmol/L (21-32); CHLORIDE 103 mmol/L (101-111); CHOL/HDL RATIO 3.3 (<4.4); CHOLESTEROL 205 mg/dL; CREATININE 0.7 mg/dL (0.6-1.3); GFR - MDRD 87 (>89); GLUCOSE 104 mg/dL (74-104); HDL CHOLESTEROL 62 mg/dL; LDL CHOLESTEROL,CALCULATED 102 mg/dL; LDL/HDL RATIO 1.6 (<4.4); POTASSIUM 3.4 mmol/L (3.5-4.5); SODIUM 140 mmol/L (135-145); TOTAL PROTEIN 6.1 g/dL (6.4-8.9); TRIGLYCERIDES 203 mg/dL (48-352); VLDL CHOLESTEROL 41 mg/dL
[2024-02-18 18:23] LABS: THYROID STIMULATING HORMONE 1.06 uIU/mL (0.34-5.60)
[2024-02-18 21:15] LABS: ESTIMATED AVERAGE GLUCOSE 117 mg/dL (70-100); HEMOGLOBIN A1c% 5.7 % (4.27-6.07)
== END 2024-02-18 12:42 | disposition home or self-care (01) ==
LOC: LAB.N 12:41
PROVIDERS: ATTEND Nurse Practitioner Family
DX: E11.40 Type 2 diabetes mellitus with diabetic neuropathy, unspecified (principal); I10 Essential (primary) hypertension; E66.01 Morbid (severe) obesity due to excess calories
CPT/HCPCS: 36415; 80053; 80061; 83036; 83721; 84443; 85025

== ENCOUNTER 2024-02-27 16:24 | Outpatient (CLI) | payer MEDICAID ==
[2024-02-27] MEDS ORDERED: iohexoL-300 100 ML VIAL ONE (16:29)
[2024-02-27] MEDS: iohexoL-300 100 ML VIAL IVP ONE (17:11)
--- NOTE | 2024-02-29 19:57 | CT Report ---
PROCEDURE: Soft Tissue Neck W INDICATIONS: SUBMANDIBULAR MASS CONTRAST: 100ml [id number] TECHNIQUE: After the administration of intravenous contrast, 3.0 mm axial sections acquired from the sella to th e aortic arch. Additional oblique axial 3.0 mm sections acquired through the pharynx. 3 mm thick co tomasa reformats were generated. For radiation dose reduction, the following was used: automated exp osure control, adjustment of mA and/or kV according to patient size. COMPARISON: None. FINDINGS: Image quality: Excellent. Lymph nodes: No enlarged lymph nodes seen throughout the neck, noted discussion about left level 1B below.. Vessels: Visualized vasculature appears patent. Neck spaces: The oropharynx, nasopharynx, and pharynx demonstrate no mucosal lesions. The vocal cor ds, false vocal cords, pyriform sinuses, epiglottis, vallecula, and tongue base all appear normal. E xtramucosal spaces appear unremarkable. Glands: The right parotid and submandibular glands appear normal. The left submandibular gland is no rmal and size. Along the lateral margin extending to the subcutaneous fat there is a 2.0 x 2.6 cm mas s at the area of palpable concern. While this is in direct approximation to the submandibular gland, it appears to arise separately possibly from the left level 1B lymph node region. The thyroid is norm al in size and there are no incidental findings. Miscellaneous: Visualized brain and orbits appear normal. Lung apices appear clear. Superficial so ft tissues appear normal. Bones: No suspicious bony lesions. Visualized sinuses and mastoids appear unremarkable. IMPRESSION: Mass along the left lateral aspect of the jaw questionably arising from the left level 1B lymph node region. This could represent an enlarged lymph node or less likely mass extension of the left submand ibular gland. Further evaluation with ENT and FNA/biopsy is recommended. CLINICAL RECOMMENDATION STATEMENTS: In patients <35 years with an ITN detected on CT, MRI, or extrathyroidal ultrasound, the Committee re commends further evaluation with dedicated thyroid ultrasound if the nodule is "e1 cm and has no susp icious imaging features, and if the patient has normal life expectancy. In patients "e35 years with an ITN detected on CT, MRI, or extrathyroidal ultrasound, the Committee r ecommends further evaluation with dedicated thyroid ultrasound if the nodule is "e1.5 cm and has no s uspicious imaging features, and if the patient has normal life expectancy. (ACR, 2014) Reviewed by: Maddie Hoffman MD on 02/29/2024 7:55 PM PDT Approved by: Maddie Hoffman MD on 02/29/2024 7:55 PM PDT Station ID: [id number]
== END 2024-02-27 16:25 | disposition home or self-care (01) ==
LOC: DI 16:24
PROVIDERS: ATTEND Nurse Practitioner Family
DX: R22.0 Localized swelling, mass and lump, head (principal)
CPT/HCPCS: 70491; Q9967

== ENCOUNTER 2024-03-05 08:56 | Outpatient (CLI) | payer MEDICAID ==
--- NOTE | 2024-03-06 08:46 | Mammography Report ---
BILATERAL DIGITAL SCREENING MAMMOGRAM 3D/2D: 03/05/2024 CLINICAL: Routine screening. Comparison is made to exam dated: 12/07/2020 mammogram - [facility]. There are scattered areas of fibroglandular density in both breasts (category b / 25%-50% glandular t issue). No significant masses, calcifications, or other findings are seen in either breast. There has been no significant interval change. IMPRESSION: NEGATIVE There is no mammographic evidence of malignancy. A 1 year screening mammogram is recommended. Based on the Tyrer Cuzick model (a risk assessment model) the patient's lifetime risk is 10.7% and he r 10 year risk is 3.1%. According to the ACR, ACS, and NCCN guidelines, an annual breast MRI exam jai ng with mammogram is recommended if the patient's lifetime risk is 20% or greater. This exam was interpreted at Station ID: [id number]. NOTE: For mammograms, a report in lay terms will be sent to the patient. Approximately 15% of breast malignancies will not be visualized mammographically. In the management of a palpable breast mass, a negative mammogram must not discourage biopsy of a clinically suspicious lesion. Electronically Signed By: Amada patel/ruby:03/05/2024 17:12:25 letter sent: No_Letter ACR BI-RADS Category 1: Negative 3341F PARENCHYMAL PATTERN: (A) - The breast(s) demonstrate(s) scattered fibroglandular densities. BI-RADS CATEGORY: (1) - 1 RECOMMENDATION: (ANNUAL) - Recommend routine annual screening mammography. [id number] 1 year screening LATERALITY: (B)
== END 2024-03-05 08:57 | disposition home or self-care (01) ==
LOC: DI.N 08:56
DX: Z12.31 Encounter for screening mammogram for malignant neoplasm of breast (principal); R92.323 Mammographic fibroglandular density, bilateral breasts

== ENCOUNTER 2024-05-05 13:53 | Outpatient (CLI) | payer MEDICAID ==
--- NOTE | 2024-05-05 14:53 | Sleep Patient Instructions ---
Sleep Center Visit Summary - Patient Visit Information Reason for Visit: First compliance for new CPAP - Patient Instructions Additional Instructions: You were here for follow up of CPAP therapy. You will be continued on CPAP therapy with pressure at 6-9 cmH2O. You should follow up with sleep care in 12 months. You may contact us sooner for any questions or concerns. - Clinic Information Contact: [facility] [address] [place] [address] [email or web address] T: [phone]
--- NOTE | 2024-05-05 14:57 | SLEEP CARE CONSULTATION ---
Information from patient questionnaire entered by Angelique Lee. I have reviewed and concur with the information entered by Angelique Lee. This document represents the service I personally performed and the decisions made by , Judy Madrigal ARNP. History of Present Illness Service Date and Time: 05/05/2024 1353 Previous diagnosis: Moderate, Obstructive Sleep Apnea-Hypopnea Syndrome AHI: 24.3 (in 2021) Reason for follow up: first compliance after device update Equipment type: CPAP (RESMED AIRSENSE 11 S/U 02/18/24) Equipment obtained from: Other ([facility]) Mask style: Nasal Mask brand: Resmed (AirFit) Backup mask available: No Prior sleep studies: No Type of Sleep Study: Polysomnography (F/U POLY, 04/06/22 [facility], POS,) HPI additional information: MYRTLE OLSON was diagnosed to have moderate, AHI 24.3, obstructive sleep apnea- hypopnea syndrome and returned today for CPAP therapy first compliance after updating device follow-up. Sleep Study - Results Type of Sleep Study: Polysomnography (F/U POLY, 04/06/22 [facility], POS,) Prior sleep studies: No CPAP Compliance Data - Data Reviewed with Patient Average duration of nightly device use: 7 HRS 34 MINS Compliance rate %: 83 (02/18/24-03/18/24; days used) Current pressure setting (cmH2O): 6-9 Average residual AHI: 4.0 Central apnea: 0 Obstructive apnea: 2.7 Hypopnea: 1.2 Average large leak: 0 L/min Subjective Missed days of use due to: reports: other (out of shape nose pillow leaking) Patient concerns: reports: aerophagia, air blowing in eyes, condensation in mask/hose (mask). denies: mask discomfort, mask leak noise, nasal congestion, dry mouth, nose, throat, epistaxis Observed to snore while using device: Yes Current pressure setting perceived as: comfortable On therapy, patient: reports: sleeping better, awakening more refreshed, being more awake and alert during the day, more rested overall. denies: drowsiness while driving Initial [place] Sleepiness Scale score: 16 (in 2021) Current [place] Sleepiness Scale score: 13 Allergies and Home Medications Known drug allergies: Yes (as listed) Drug allergies reviewed: Yes Home medication list reviewed: Yes (Trazodone) Allergy and home medication list: Allergies escitalopram [From Lexapro] Allergy (Verified 05/01/24 15:10) Edema Review of Systems Review of systems same as previous: No (pinched nerve in back, numbness R calf/foot, left hand/fingers) Physical Exam Vital signs obtained and entered by: JUDY TABOR Blood Pressure: 165/108 (patient in pain ) Cuff size: long (right) Heart Rate: 67 O2 Saturation: 96 Height: 5 ft 2 in Weight: 250 lb Body Mass Index: 45.7 BMI Classification: Morbidly Obese Impression and Plan 1. Obstructive Sleep Apnea-Hypopnea Syndrome, moderate, with good treatment compliance and good apnea control. On CPAP therapy, the patient has better sleep quality and is more rested overall. Patient states she still tired and napping during the day but is not sleeping as well since she pinched a nerve in her back and is in extreme pain. She gets a little bloated feeling in the morning that resolves quickly. Her AHI is currently within goal. Patient's apnea severity and rationale for treatment to reduce apnea, improve sleep quality and reduce cardiovascular and cerebrovascular events was reviewed. I also reviewed the benefit of consistent device use of CPAP for hypertension, depression/anxiety. 2. Obesity, unspecified. Currently patients BMI is 45.7. Obesity increases the risk of apnea, CPAP pressure requirements and overall health risks especially cardiovascular and diabetes. Thus patient is advised to try to lose weight. 3. Elevated blood pressure in patient with hypertension. Her blood pressure reading today was elevated at 165/108. She says it has been running high lately and she is in a lot of pain because of her pinched nerve in the back.She is also on 2 medications for her blood pressure. She denies any chest pain, shortness of breath, dizziness or headaches today. She has to follow-up with her PCP as needed. * Continue auto CPAP pressure at 6-9 cmH2O * Notify me if snoring with mask or feeling that the pressure is too much or too little * Attempt to lose weight * Call this office if any problems using CPAP * Return for follow up in 12 months, or sooner if concerns arise Counseling Topics: Spare mask, Weight loss health impact Follow up with Sleep Care in: 1 year Visit Type: In Office Time Spent with Patient (minutes): 18 Provider Statement: I spent 100% of the Face to Face Visit with the patient with greater than 50% spent counseling the patient and coordination of care.
[2024-05-05 15:01] VITALS: BP 165/108; O2SAT 96
== END 2024-05-05 13:54 | disposition home or self-care (01) ==
LOC: SC 13:53
PROVIDERS: ATTEND Nurse Practitioner Family
DX: G47.33 Obstructive sleep apnea (adult) (pediatric) (principal); E66.01 Morbid (severe) obesity due to excess calories; Z68.42 Body mass index [BMI] 45.0-49.9, adult; I10 Essential (primary) hypertension
CPT/HCPCS: 99212

== ENCOUNTER 2024-05-08 08:14 | Outpatient (CLI) | payer MEDICAID ==
--- NOTE | 2024-05-08 11:57 | MRI Report ---
PROCEDURE: Lumbar Spine WO INDICATIONS: R SCIATICA, LOW BACK PAIN TECHNIQUE: Noncontrast sagittal T1 spin echo and T2 fast echo, sagittal STIR, axial T1 and T2 fast spin echo thr ough the lumbar spine. In cases with scoliosis, additional coronal T2 fast spin echo may be performe d. COMPARISON: None. FINDINGS: Image quality: Diagnostic Alignment and Curvature: There is normal bony alignment. Bone Marrow: Marrow is of normal overall signal. No acute vertebral body compression fractures. Spinal Cord: Conus medullaris terminates at the T12 level. Visualized cord demonstrates normal sign al and size. Paraspinous Soft Tissues: No paravertebral masses. T12-L1: Normal in appearance. L1-L2: Normal in appearance. L2-L3: The disc height is relatively well preserved. Mild disc bulge is seen. A superimposed cent ral disc protrusion is seen. There is mild left-sided and no right-sided neuroforaminal narrowing. Mi nimal central canal narrowing is seen. L3-L4: Mild loss of disc height and disc signal are seen. Mild disc bulge is seen. Mild facet hyp ertrophy is seen. No significant neural foraminal or central canal narrowing can be seen. L4-L5: The disc height is well-preserved. There is loss of disc signal seen. Mild disc bulge is se en, which is eccentric to the left. Moderate facet hypertrophy is seen. Fluid is seen within the fa cet joints themselves. There is at least moderate left-sided and moderate right-sided neuroforaminal narrowing. No significant central canal narrowing is seen. L5-S1: Moderate loss of disc height and signal are seen. Mild to moderate disc bulge is seen, which is eccentric to the left. Moderate facet hypertrophy is seen. There is at least moderate left-sided neuroforaminal narrowing, with a minimal degree of compression upon the exiting left L5 nerve root. There is moderate right-sided neuroforaminal narrowing. Mild to moderate central canal narrowing is s een, which is exacerbated by prominent epidural fat. IMPRESSION: Multiple levels of lumbar spine degenerative change can be seen, which are worst at the L5-S1 level. Reviewed by: Thom Licea MD on 05/08/2024 10:55 AM TOMMY Approved by: Thom Licea MD on 05/08/2024 10:55 AM TOMMY Station ID: [id number]
== END 2024-05-08 08:15 | disposition home or self-care (01) ==
LOC: DI 08:14
PROVIDERS: ATTEND Nurse Practitioner
DX: M47.816 Spondylosis without myelopathy or radiculopathy, lumbar region (principal); M47.817 Spondylosis without myelopathy or radiculopathy, lumbosacral region; M54.31 Sciatica, right side

== ENCOUNTER 2024-05-29 18:55 | Outpatient (CLI) | payer MEDICAID ==
[2024-05-29 19:09] LABS: BASOPHILS % (AUTO) 0.3 %; EOSINOPHILS # (AUTO) 0.2 10^3/uL (0.0-0.7); EOSINOPHILS % (AUTO) 1.4 %; HGB - HEMOGLOBIN 11.5 g/dL (12.0-16.0); LYMPHOCYTES # (AUTO) 1.6 10^3/uL (1.5-3.5); LYMPHOCYTES % (AUTO) 14.1 %; MEAN CORPUSCULAR HEMOGLOBIN 26.6 pg (27.0-31.0); MEAN CORPUSCULAR HGB CONC 31.1 g/dL (32.0-36.0); MEAN CORPUSCULAR VOLUME 85.5 fL (81.0-99.0); MEAN PLATELET VOLUME 9.9 fL (7.9-10.8); MONOCYTES # (AUTO) 0.7 10^3/uL (0.0-1.0); MONOCYTES % (AUTO) 6.4 %; NEUTROPHILS # (AUTO) 8.9 10^3/uL (1.5-6.6); NEUTROPHILS % (AUTO) 77.5 %; PLT - PLATELET COUNT 262 10^3/uL (130-450); RED BLOOD COUNT 4.33 10^6/uL (4.20-5.40); RED CELL DISTRIBUTION WIDTH 13.8 % (12.0-15.0); WHITE BLOOD COUNT 11.5 x10^3/uL (4.8-10.8)
[2024-05-29 19:21] LABS: ALBUMIN/GLOBULIN RATIO 1.1 (1.0-2.2); BILIRUBIN,TOTAL 0.6 mg/dL (0.2-1.0); CALCIUM 9.8 mg/dL (8.5-10.3); CREATININE 0.7 mg/dL (0.6-1.3); TOTAL PROTEIN 7.5 g/dL (6.4-8.9)
== END 2024-05-29 18:56 | disposition home or self-care (01) ==
LOC: LAB 18:55
PROVIDERS: ATTEND Nurse Practitioner Family
DX: R10.32 Left lower quadrant pain (principal); E66.01 Morbid (severe) obesity due to excess calories
CPT/HCPCS: 36415; 80053; 85025

== ENCOUNTER 2024-06-04 09:40 | Outpatient (CLI) | payer MEDICAID ==
[2024-06-04] MEDS ORDERED: iohexoL-300 100 ML VIAL ONE (09:52)
[2024-06-04] MEDS ORDERED: DIATRIZOATE MEGLU/DIATRIZO SOD 30 ML BOTTLE PO ONE (09:52)
[2024-06-04] MEDS: iohexoL-300 100 ML VIAL IVP ONE (11:35)
[2024-06-04] MEDS: DIATRIZOATE MEGLU/DIATRIZO SOD 30 ML BOTTLE PO ONE (11:35)
--- NOTE | 2024-06-05 15:47 | CT Report ---
PROCEDURE: Abdomen/Pelvis W INDICATIONS: LLQ ABDOMINAL PAIN, MORBID OBESITY CONTRAST: Intravenous nonionic iodinated contrast, Omni 300 100ml TECHNIQUE: After the administration of intravenous contrast, a CT scan of the abdomen and pelvis was performed. Images were recorded and evaluated at appropriate window settings. Reformats: coronal and sagittal. F or radiation dose reduction, the following was used: automated exposure control, adjustment of mA and /or kV according to patient size. COMPARISON: None. FINDINGS: Image quality: Diagnostic. Lower chest: Unremarkable. Liver: No solid mass. Gallbladder: Biliary tree: No intrahepatic or extrahepatic dilation, accounting for age. Spleen: No splenomegaly. Pancreas: No pancreatic ductal dilation. Adrenals: No adrenal nodule. Kidneys and ureters: No hydronephrosis. No renal cystic lesion which requires follow up. No solid mas s. Stomach, bowel and peritoneum: No gastric or small bowel dilation. No abnormal wall thickening. No pa thologic free fluid. At the descending: There is diverticulosis and immediate adjacent mild diverticu litis that appears acute, with pericolonic edema and fat stranding but no peridiverticular abscess Lymph nodes: No central or retroperitoneal adenopathy. Vessels: No infrarenal aortic aneurysm. Patent portal vein. PELVIS Reproductive organs: Apparent prior hysterectomy.. Bladder: No abnormal wall thickening, accounting for underdistention. Pelvic lymph nodes: No pelvic adenopathy by size criteria. Bones: No aggressive osseous abnormality. Other: No significant ventral or inguinal hernia. IMPRESSION: Acute diverticulitis descending colon, without peridiverticular abscess. The extent of disease is cur rently mild. Reviewed by: Hay Romero MD on 06/05/2024 3:45 PM PDT Approved by: Hay Romero MD on 06/05/2024 3:45 PM PDT Station ID: [id number]
== END 2024-06-04 09:41 | disposition home or self-care (01) ==
LOC: DI 09:40
PROVIDERS: ATTEND Nurse Practitioner Family
DX: K57.32 Diverticulitis of large intestine without perforation or abscess without bleeding (principal); E66.01 Morbid (severe) obesity due to excess calories
CPT/HCPCS: 74177; Q9963; Q9967

== ENCOUNTER 2024-07-08 08:23 | Day surgery (SDC) | payer MEDICAID ==
[~2024-07-08 08:23] MED LIST changes: -ACETAMINOPHEN 500 MG TABLET PO ONE; -CELECOXIB 100 MG CAPSULE PO ONE
[2024-07-08] MEDS: LACTATED RINGERS 1,000 ML IV ONE ×2 (08:33→11:58)
[2024-07-08] MEDS: CELECOXIB 100 MG CAPSULE PO ONE (08:55)
[2024-07-08] MEDS ORDERED: LIDOCAINE 1%-EPI 1:100000 20 ML MDV ONE (09:03)
[2024-07-08] MEDS ORDERED: BUPIVACAINE 0.25% PF 10 ML VIAL ONE (09:03)
--- NOTE | 2024-07-08 09:41 | ANESTHESIA ---
Pre-Anesthesia VS, & Labs - Diagnosis Left carpal tunnel syndrome - Procedure Left CTR Vital Signs: Temp Pulse Resp BP Pulse Ox O2 Flow Rate 36.1 C L 69 14 120/74 95 07/08/24 08:34 07/08/24 08:34 07/08/24 08:34 07/08/24 08:34 07/08/24 08:34 Height: 5 ft 2 in Weight (kg): 111.6 kg Body Mass Index: 45.0 BMI Classification: Morbidly Obese - NPO >8 hours - Is Patient ?: No Home Medications and Allergies Home Medications: Ambulatory Orders traZODone [Desyrel] 50 mg PO HS 07/03/24 PARoxetine HCL [Paxil] 30 mg PO BID 01/30/22 Acetaminophen [Acetaminophen Extra Strength] 500 mg PO Q6H PRN 09/30/23 Hydralazine HCl 50 mg PO BID 09/30/23 traZODone [Desyrel] 50 mg PO HS 07/03/24 Allergies/Adverse Reactions: Allergies Allergy/AdvReac Type Severity Reaction Status Date / Time escitalopram [From Lexapro] Allergy Edema Verified 07/08/24 08:53 gabapentin Allergy Unknown Verified 07/08/24 08:53 Anes History & Medical History - Anesthetic History Anesthesia Complications: reports: No previous complications - Medical History Cardiovascular: reports: Hypertension Pulmonary: reports: Sleep apnea, CPAP use Gastrointestinal: reports: GERD Urinary: reports: Kidney stones Neuro: reports: None Musculoskeletal: reports: Osteoarthritis, Chronic back pain Endocrine/Autoimmune: reports: None Skin: reports: Other Smoking Status: Former smoker (quit 2018) Psychosocial: reports: Depression, Anxiety History of Cancer?: No - Surgical History Gynecologic: reports: section, Hysterectomy Orthopedic: reports: Carpal Tunnel surgery Exam General: Alert, Oriented x3, Cooperative, No acute distress Dental: WNL Mouth Openin Fingerbreadth Neck Mobility: Normal Mallampati classification: II Thyromental Distance: 4-6 cm Mental/Cognitive Status: Alert/Oriented X3, Normal for patient Plan Anesthesia Type: General, MAC Consent for Procedure(s) Verified and Reviewed: Yes Code Status: Attempt Resuscitation ASA classification: 3-Severe systemic disease Is this case an emergency?: No
[2024-07-08] MEDS ORDERED: MIDAZOLAM 2 MG/2 ML VIAL ONE (10:32)
[2024-07-08] MEDS ORDERED: fentaNYL 100 MCG/2 ML VIAL ONE (10:32)
[2024-07-08] MEDS ORDERED: PROPOFOL 200 MG/20 ML VIAL IVP ONE ×3 (10:33→11:37)
[2024-07-08] MEDS ORDERED: LIDOCAINE-PF 2% 10 ML AMP SUBQ ONE (10:33)
[2024-07-08] MEDS ORDERED: ACETAMINOPHEN 1,000 MG/100 ML 1,000 MG/100 ML BAG IV ONE (11:05)
[2024-07-08] MEDS: BUPIVACAINE 0.25% PF 10 ML VIAL SUBQ ONE ×2 (11:19)
[2024-07-08] MEDS: LIDOCAINE 1%-EPI 1:100000 20 ML MDV SUBQ ONE ×2 (11:19)
[2024-07-08] MEDS ORDERED: oxyCODONE 5 MG TABLET PO PRN (11:56)
--- NOTE | 2024-07-08 12:00 | OPERATIVE REPORT ---
Operative Report - General Procedure Date: 07/08/24 Planned Procedure: LEFT Carpal Tunnel Release Pre-Op Diagnosis: Left Carpal TUnnel Syndrome Procedure Performed: LEFT Carpal Tunnel Release - Procedure Note Primary Surgeon: Russell Haque Secondary Surgeon: Erika Stinson Anesthesia Technique: MAC Indications: LEFT Chronic Carpal Tunnel Syndrome Findings: Highly thickended transverse carpal ligament - Other Other Information/Narrative: Laterality: LEFT Preoperative diagnosis: Carpal Tunnel Syndrome Procedure performed: Carpal Tunnel Release, Open Postoperative diagnosis: Same Primary Surgeon: Russell Haque MD Secondary Surgeon: Erika Stinson Physician Compressor Service Technician was used throughout the entirety of the case. They assisted with room set up, patient positioning, draping, retraction, reduction, fixation and closure. They were essential for the success of the case. Anesthesia: General EBL: 10ml Tourniquet: 32 minutes @ 250 mmHg Indication For Surgery: Patient presented with signs and symptoms of carpal tunnel syndrome. Conservative treatment did not result in adequate symptom improvement. The risks, benefits, and alternatives were discussed. Risks include pain, bleeding, infection, damage to nearby structures, pillar pain, wound heal ing complications, thumb weakness, numbness, lack of symptom relief, need for further surgery, DVT, PE, stroke, and . Written consent was obtained. Operative Findings: Thickened transverse carpal ligament was released. No carpal tunnel masses. Procedure in Detail: The patient was met in the pre-operative hold area. Consent was verified and operative extremity was signed. Local anesthesia was injected. The patient then met with anesthesia and was brought back to the operating room. The patient was placed supine on the operating table. The extremity was then prepped and draped in the usual sterile fashion. A timeout was performed per protocol. All were in agreement and we proceeded. Local Anesthetic was administered. The quality of anesthetic was tested with an adson forceps. A 3cm longitudinal incision was made in line with the ulnar border of the ring finger starting at Link's Cardinal line distally. This was just radial to the hook of the hamate. Sharp dissection was brought down through the palmar fascia. There was significant scaring between the palmar fascia and the transverse carpal ligament. Retractors were placed. The transverse carpal ligament was identified and a knife was used to incise it longitudinally until fat was seen distally in the palm. Long handled Metzenbaum scissors were then used to create a pocket just superficial to the transverse carpal ligament and a retractor was placed. The scissors were then placed deep to the ligament to bluntly separate the contents of the canal from ligament. I then pointed the tips of the scissors ulnarly and completed the release 2 cm into the antebrachial fascia. A freer elevator was used to confirm complete release both proximally and distally. The wound was then irrigated copiously and closed with 4-0 nylon in a horizontal mattress configuration. A sterile bulky dressing and short arm splint was applied. Postoperative Plan: Same day surgery discharge Leave splint on until follow up No use of operative hand 2 week follow up for suture removal. No manual labor 6 week follow up with anticipated release to full activity Russell Haque MD
[2024-07-08 13:04] VITALS: BP 119/64; O2SAT 97
--- NOTE | 2024-07-08 18:22 | ANESTHESIA POST OP EVALUATION ---
Anesthesia Post Eval - Post Anesthesia Eval Vitals: Last Vital Signs Temp 36.2 C L 07/08/24 12:10 Pulse 60 07/08/24 12:10 Resp 18 07/08/24 12:10 BP 119/64 07/08/24 12:10 Pulse Ox 97 07/08/24 12:10 O2 Flow Rate CV Function Including HR & BP: Stable Pain Control: Satisfactory Nausea & Vomiting: Negative Mental Status: Baseline Respiratory Status: Airway Patent Hydration Status: Satisfactory Anesthesia Complications: None
== END 2024-07-08 08:24 | disposition home or self-care (01) ==
LOC: SDS 08:23
PROVIDERS: ATTEND Orthopaedic Surgery
DX: G56.02 Carpal tunnel syndrome, left upper limb (principal); E66.01 Morbid (severe) obesity due to excess calories; Z68.42 Body mass index [BMI] 45.0-49.9, adult; G47.30 Sleep apnea, unspecified; Z87.891 Personal history of nicotine dependence; I10 Essential (primary) hypertension
CPT/HCPCS: 64721; A9270; J0131; J7120